=== PATIENT | male | born 1960 | race Caucasian/White ===

== ENCOUNTER → 2017-08-22 | Outpatient (CLI) | payer BC ==
[~2017-08-22] MED LIST: ASPI-587 PO; HYDR-34 PO
--- NOTE | 2017-08-22 13:05 | Diagnostic Imaging Report ---
EXAMINATION: Scrotal ultrasound. INDICATION: Right scrotal swelling. Spectral and color flow imaging of the testicles was performed. There are no prior studies available for comparison. FINDINGS: Both testicles were identified. The right testicle measures 5.1 x 3.0 x 3.3 cm while the left testicle is estimated to be 5.4 x 2.6 x 3.1 cm. There is no evidence for a solid testicular mass, and there is good blood flow to each testicle. There is a small 6 mm cyst associated with the epididymal head on the right. The epididymis itself is not inflamed. The left epididymis is generally unremarkable. There are bilateral hydroceles including a large right hydrocele. There is no varicocele formation. IMPRESSION: 1. There is no evidence for a solid testicular mass, and there is no sign of torsion. 2. There is a small benign-appearing epididymal cyst on the right. 3. There are bilateral hydroceles including a large hydrocele on the right. Dictated by: Dictated on workstation # [id number]
== END ==
LOC: RAD 11:27
PROVIDERS: ATTEND Surgery
DX: N43.3 Hydrocele, unspecified (principal); N50.3 Cyst of epididymis
CPT/HCPCS: 76870